=== PATIENT | male | born 1935 | race Caucasian/White ===

== ENCOUNTER 2022-10-27 10:28 | Emergency (ER) | payer OTHER ==
[~2022-10-27] VITALS: Ht 167.6 cm; Wt 65.3 kg
[2022-10-27 10:30] VITALS: BP_SYST 150
--- NOTE | 2022-10-27 10:35 | NUR ---
BROUGHT IN BY [facility] [employer] [facility] AND PLACED IN BED #6, TRIAGED AND WILL ASSUME CARE.
--- NOTE | 2022-10-27 10:37 | NUR ---
PT STATES THAT HE WAS HAVING RIGHT FLANK PAIN AND NOW PAIN IS SUPRAPUBIC, ++DYSURIA "A FEW TIMES".PT STATES HE HAS HAD SURGERY ON RIGHT KIDNEY FOR KIDNEY STONES BEFORE. PT STATES HE HAS BEEN HAVING FREQUENT URINATION
--- NOTE | 2022-10-27 11:50 | NUR ---
DR ESPAÑA AT BEDSIDE FOR EVALUATION
--- NOTE | 2022-10-27 12:10 | NUR ---
TAKEN TO RADIOLOGY FOR TESTING
--- NOTE | 2022-10-27 12:20 | NUR ---
RETURNED FROM RADIOLOGY, PLACED BACK TO BED #6, AT BEDSIDE FOR SUPPORT
[2022-10-27] MEDS ORDERED: KETOROLAC TROMETHAMINE 60 MG/2 ML VIAL IM ONE (12:30)
[2022-10-27 12:50] LABS: BILIRUBIN,URINE NEGATIVE (NEGATIVE); CLARITY/URINE CLOUDY (CLEAR); COLOR,URINE YELLOW (YELLOW); GLUCOSE,URINE NEGATIVE (NEGATIVE); KETONES,URINE NEGATIVE (NEGATIVE); LEUKOCYTE ESTERASE ,URINE 2+ (NEGATIVE); NITRITE, URINE NEGATIVE (NEGATIVE); PH,URINE 6.5 (5.0-8.0); PROTEIN URINE 1+ (NEGATIVE); UROBILINOGEN,URINE 0.2 (0.2-1.0)
[2022-10-27 12:54] LABS: BLOOD, URINE TRACE (NEGATIVE)
[2022-10-27 12:57] LABS: ANION GAP 11 (5-15); CALCIUM 9.1 mg/dL (8.4-11.0); CHLORIDE 101 mmol/L (98-107); CREATININE 1.43 mg/dL (0.55-1.30); GLUCOSE 128 mg/dL (70-99); UREA NITROGEN, BLOOD 31 mg/dL (8-21)
[2022-10-27 12:59] LABS: HEMATOCRIT 31.7 % (36-54); HEMOGLOBIN 10.6 g/dL (14.0-18.0); MEAN CORPUSCULAR HEMOGLOBIN 28 pg (27-31); MEAN CORPUSCULAR HGB CONC 34 % (32-36); MEAN CORPUSCULAR VOLUME 83 fL (79.0-98.0); PLATELET COUNT (AUTO) 268 K/uL (130-430); RED BLOOD CELL COUNT(AUTO) 3.83 MIL/uL (4.2-6.2); RED CELL DISTRIBUTION WIDTH 21.4 % (9.0-15.0); WHITE BLOOD COUNT (AUTO) 12.7 K/uL (4.8-10.8)
[2022-10-27 13:03] LABS: ALANINE AMINOTRANSFERASE 8 U/L (12-78); ALBUMIN 3.2 g/dL (3.4-4.8); ASPARTATE AMINOTRANSFERASE 14 U/L (10-37); LIPASE 23 U/L (73-393); TOTAL BILIRUBIN 1.4 mg/dL (0.0-1.0)
[2022-10-27 13:17] LABS: BACTERIA,URINE MANY /HPF (None Seen); MUCUS,URINE 1+ /LPF (None Seen)
--- NOTE | 2022-10-27 13:30 | NUR ---
DR ESPAÑA AT [facility] FOR EVALUATION Addendum: 10/27/22 at 1418 by [facility] RE-EVALUATION
[2022-10-27 13:45] VITALS: BP_SYST 150
[2022-10-27 13:45] LABS: BAND % (MANUAL) 3 % (0-6); BASOPHILS % (MANUAL) 0 % (0-2); EOSINOPHILS % (MANUAL) 0 % (0-7); LYMPHOCYTES % (MANUAL) 16 % (20-46); MONOCYTES % (MANUAL) 4 % (0-11)
[2022-10-27] MEDS ORDERED: CIPR500T5 PO (14:03)
--- NOTE | 2022-10-27 14:16 | NUR ---
Patient given written and verbal discharge instructions and verbalizes understanding. ER MD discussed with patient the results and treatment provided. Patient in stable condition. ID arm band removed. Rx of CIPRO given. Patient educated on pain management and to follow up with PMD. Pain Scale 0/10. Opportunity for questions provided and answered. Medication side effect fact sheet provided.
== END 2022-10-27 14:16 | disposition home or self-care (01) ==
LOC: SED 10:28
DX: N39.0 Urinary tract infection, site not specified (principal); K59.00 Constipation, unspecified; R10.30 Lower abdominal pain, unspecified; Z79.899 Other long term (current) drug therapy
CPT/HCPCS: 99285; 74176; 85027; 80053; 81000; 83690; 85007; 87086; 36415; 76376; 96372; J1885